=== PATIENT | male | born 1995 | race Caucasian/White ===

== ENCOUNTER 2019-03-27 23:07 | Emergency (ER) | payer MEDICAID ==
[~2019-03-27] VITALS: Ht 157.5 cm; Wt 52.0 kg
[2019-03-28 04:12] VITALS: BP 119/75
== END 2019-03-28 04:13 | disposition home or self-care (01) ==
LOC: ER 23:07
DX: K60.2 Anal fissure, unspecified (principal); L30.9 Dermatitis, unspecified
CPT/HCPCS: 86592; 99283